=== PATIENT | male | born 1980 | race Caucasian/White ===

== ENCOUNTER 2018-06-24 15:01 | Emergency (ER) | payer OTHER ==
[2018-06-24 15:52] VITALS: O2SAT 99
--- NOTE | 2018-06-24 16:27 | C.PDOC ---
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 Patient states he hit the back of his head, but no LOC. He denies nausea and vomiting. Patient is requesting detox from alcohol. He is also complaining of intermittent cough with clear to white sputum for the last 2 months, but no fever. Otherwise he has no other complaints. Time Seen by Provider: 06/24/18 15:33 Chief Complaint (Nursing): Cough, Cold, Congestion History Per: Patient History/Exam Limitations: no limitations Onset/Duration Of Symptoms: Hrs Current Symptoms Are (Timing): Still Present Past Medical History Reviewed: Historical Data, Nursing Documentation, Vital Signs Vital Signs: Last Vital Signs Temp 97.9 F 06/24/18 15:15 Pulse 118 H 06/24/18 15:15 Resp 18 06/24/18 15:15 BP 136/84 06/24/18 15:15 Pulse Ox 99 06/24/18 15:15 - Medical History PMH: Anxiety, Depression Family History: States: No Known Family Hx - Social History Hx Alcohol Use: Yes Hx Substance Use: No - Immunization History Hx Tetanus Toxoid Vaccination: No Hx Influenza Vaccination: No Hx Pneumococcal Vaccination: No Review Of Systems Constitutional: Negative for: Fever, Chills ENT: Negative for: Nose Congestion, Throat Pain Cardiovascular: Negative for: Chest Pain Respiratory: Positive for: Cough, Sputum (clear to white). Negative for: Shortness of Breath Gastrointestinal: Negative for: Nausea, Vomiting Musculoskeletal: Negative for: Neck Pain, Back Pain Neurological: Negative for: Headache, Dizziness Physical Exam - Physical Exam Appears: Non-toxic, No Acute Distress Skin: Warm, Dry, Other (No velasquez sign) Head: Atraumatic, Normacephalic, No Swelling, No Abrasion Eye(s): bilateral: PERRL, EOMI Ear(s): Bilateral: Other (no hemotympanum) Oral Mucosa: Moist Throat: No Erythema Neck: No Midline Cervical Tenderness, Supple Cardiovascular: Rhythm Regular (mild tachycardia), No Murmur Respiratory: Normal Breath Sounds, No Rales, No Rhonchi, No Wheezing Gastrointestinal/Abdominal: Bowel Sounds (normoactive), Soft, No Tenderness Extremity: Other (bilateral amputation of lower extremities, stumps are well healed) Neurological/Psych: Oriented x3, Normal Speech (clear), Normal Cognition ED Course And Treatment O2 Sat by Pulse Oximetry: 99 (RA) Pulse Ox Interpretation: Normal - CT Scan/US Head CT Other Rad Studies (CT/US): Read By Radiologist, Radiology Report Reviewed CT/US Interpretation: IMPRESSION: No evidence of acute intracranial hemorrhage or acute fracture. [id number] volume loss. Medical Decision Making Medical Decision Making: Plan: --Head CT pt with fal, hit head, no loc, given pt's hx alcohol use. will get ct head to eval for ich. No male detox beds are available at the moment. [address] neg head [address], speaks clearly. denies him si and ah. pt sts his psychiatrist (Dr Kurtz from [place]) told him to come to detox; explained no beds available. discussed with Crisis, he will be put onto waiting list and given other resources as well. while in ed, a few minutes ago, pt rolled over in bed and fell onto floor, denies hitting head. denies any other injury. incident was not witnessed, but nurse found him on floor. pt denies any pain, no signs of trauma on exam. pt speaks with clear voice. 1735 pt now on waiting list for detox and given other resources. pt ambulates with steady gait, will d/c home. 1747 pt told RN that he hit head when he rolled out of bed; however pt has told me twice that he did not hit head. second time, pt sts his arm was next to his head and he did not head head, his arm 'broke the fall', denies arm pain. pt has been given closed head injury instructions and advised to follow up in ,medical clinic. Disposition Counseled Patient/Family Regarding: Studies Performed, Diagnosis, Need For Followup - Disposition Referrals: Jordan Kurtz MD [Medical Doctor] - Disposition: HOME/ ROUTINE Disposition Time: 17:39 Condition: GOOD Additional Instructions: Follow up with your psychiatrist. Take your medications as prescribed. Try other detox facilities if possible. Return to ER for any severe headache, vomiting, seizure. blurry vision, not acting your usual self. or any other concerning symptoms. Instructions: Closed Head Injury (DC), Alcohol Abuse and Alcoholism (DC) Forms: [facility] [facility] (Ukrainian), General Discharge Instructions - Clinical Impression Clinical Impression: Closed head injury, Alcohol abuse, Fall from slip, trip, or stumble
--- NOTE | 2018-06-24 16:48 | CT ---
Date of service: 06/24/2018 PROCEDURE: CT HEAD WITHOUT CONTRAST. HISTORY: S/p fall, hit head hx etoh abuse. no loc COMPARISON: None available. TECHNIQUE: Axial computed tomography images were obtained through the head/brain without intravenous contrast. Radiation dose: Total exam DLP = 1006.3 mGy-cm. This CT exam was performed using one or more of the following dose reduction techniques: Automated exposure control, adjustment of the mA and/or kV according to patient size, and/or use of iterative reconstruction technique. FINDINGS: HEMORRHAGE: No intracranial hemorrhage. BRAIN: No mass effect or edema. [id number] volume loss noted. VENTRICLES: Unremarkable. No hydrocephalus. CALVARIUM: Unremarkable. PARANASAL SINUSES: Unremarkable as visualized. No significant inflammatory changes. MASTOID AIR CELLS: Unremarkable as visualized. No inflammatory changes. OTHER FINDINGS: None. IMPRESSION: No evidence of acute intracranial hemorrhage or acute fracture. [id number] volume loss.
[2018-06-24 17:55] VITALS: BP 121/82; PULSE 105; RESP 17; TEMP 98.4
== END 2018-06-24 18:01 | disposition home or self-care (01) ==
LOC: C.ER 15:01
DX: S09.90XA Unspecified injury of head, initial encounter (principal); W01.0XXA Fall on same level from slipping, tripping and stumbling without subsequent striking against object, initial encounter; Y92.009 Unspecified place in unspecified non-institutional (private) residence as the place of occurrence of the external cause; F10.10 Alcohol abuse, uncomplicated